=== PATIENT | male | born 1965 | race Caucasian/White ===

== ENCOUNTER 2017-05-17 06:10 | Inpatient (IN) ==
--- NOTE | 2017-05-16 21:05 | Discharge Summary ---
<Tanna Garza - Last Filed: 05/16/17 21:02> Date of Encounter: 05/16/17 - Discharge Diagnosis (1) Rotator cuff tear arthropathy of right shoulder Priority: Primary Status: Acute (2) Status post total shoulder replacement Priority: Primary Status: Acute Comments: Plan to discharge home with Home Health. Qualifiers: Laterality: right Qualified Code(s): Z96.611 - Presence of right artificial shoulder joint (3) Obesity Priority: Secondary Status: Chronic Qualifiers: Obesity type: unspecified obesity type Obesity severity: morbid Qualified Code(s): E66.01 - Morbid (severe) obesity due to excess calories (4) Chronic pain Priority: Secondary Status: Chronic Comments: Holding chronic pain medication. OARRS reviewed. Hold Bevier 5/325. Qualifiers: Chronic pain type: other chronic pain Qualified Code(s): G89.29 - Other chronic pain (5) HTN (hypertension) Priority: Secondary Status: Chronic Qualifiers: Hypertension type: essential hypertension Qualified Code(s): I10 - Essential (primary) hypertension (6) COPD (chronic obstructive pulmonary disease) Priority: Secondary Status: Acute Qualifiers: COPD type: unspecified COPD Qualified Code(s): J44.9 - Chronic obstructive pulmonary disease, unspecified - Discharge Medications Home Medications: OxyCODONE Immed Rel [Roxicodone 5 MG] 5 - 10 mg PO Q6HR PRN #40 tablet 05/16/17 [Rx] HYDROcodone/Acet 10/325 mg [Bevier 10-325 mg] 1 tab PO Q6H PRN 05/17/17 [History] Oxygen 5 l NS HS 05/17/17 [History] Allergies/Adverse Reactions: Allergies aspirin Adverse Reaction (Unverified 05/17/17 07:59) SWELLING ibuprofen [From Advil] Adverse Reaction (Unverified 05/17/17 07:59) SWELLING swelling naproxen Adverse Reaction (Unverified 05/17/17 07:59) SWELLING rofecoxib [From Vioxx] Adverse Reaction (Unverified 05/17/17 07:59) SWELLING Primary care physician: Shoaib Vital MD - Patient Status Disposition: Home Health Service Condition: Good - Discharge Instructions Follow Up With: Shoaib Vital MD [Primary Care Provider] - Additional Instructions: Discharge Instructions: Total Shoulder Please call [facility] ([phone]), your Primary Care Physician, or report to the Emergency Room if you have any of the following symptoms: Nausea, vomiting, fever greater that 101.5, swelling, chest pain, shortness of breath, increased pain/redness/drainage/odor for your incision site, numbness/ tingling, or any other concerning symptoms. ACTIVITY: Always keep your arm in the sling. Do not raise your arm away from your body. Do not use your arm to help with getting in or out of bed. No weight bearing permitted. Only perform those exercises given to you by your therapist. MEDICATIONS: Upon discharge resume your home medications. Take all the medications as prescribed. Take a stool softener if taking narcotic pain medications. Stool softeners are only effective if you drink enough fluids. Drink 6-8 glass of water or fluids a day, unless this is not allowed for another health problem. Despite using stool softeners, if you haven't had a bowel movement in 3 days, please switch to a gentle laxative. Gentle laxatives are sold over the counter. You should have a bowel movement within 24 hours, if not call the office. You will be discharged from the hospital with a prescription for pain medication. You are encouraged to decrease the use of narcotic pain medication as tolerated. Should you require a refill, please call the office. [facility] prescribes narcotic pain medication for only 4-6 weeks after surgery. If you require pain medication beyond this time period, you may be referred to your Primary Care Physician or to the Pain Clinic for further evaluation. Plan ahead for refills on pain medication as many narcotics either need to be picked up at the office or mailed. It is best to call 48-72 hours in advance of needing a prescription refill so you don't run out of medication. To help control the post-operative pain, you may take NSAIDs (Aleve,Advil, Motrin, Ibuprofen, Naprosyn) or Tylenol as prescribed on the bottle in addition to the pain medication. WOUND CARE: Leave the dressing on for 7-10 days. You may change the dressing if it becomes saturated greater than 50%. Do not get the dressing wet at anytime. Wash your hands with antibacterial soap, rinse and dry prior to any wound care. If you have angela the visiting nurse or rehab facility can remove the stapes 10-14 days after surgery and place steri-strips across the wound. Leave the steri-strips in place until they fall off on their own. You may let water from the shower run on top of the steri-strips. If you do not have a visiting nurse or rehab facility, you will need to return to the office at 10-14 days for the angela to be removed. If you have itching or redness around the dressing call the office. FOLLOW-UP: Please follow up with your surgeon in the orthopedic clinic, as scheduled - Hospital Course Hospital course: Mr. Page is a 51 year old male - Time Spent with Patient Total time spent providing and/or coordinating discharge services: <Ajit Núñez - Last Filed: 05/17/17 16:05> Date of Encounter: 05/17/17 Time of Encounter: 16:05 - Discharge Diagnosis (1) Rotator cuff tear arthropathy of right shoulder Priority: Primary Status: Acute (2) Status post total shoulder replacement Priority: Primary Status: Acute Qualifiers: Laterality: right Qualified Code(s): Z96.611 - Presence of right artificial shoulder joint (3) Obesity Priority: Secondary Status: Chronic Qualifiers: Obesity type: unspecified obesity type Obesity severity: morbid Qualified Code(s): E66.01 - Morbid (severe) obesity due to excess calories (4) Chronic pain Priority: Secondary Status: Chronic Qualifiers: Chronic pain type: other chronic pain Qualified Code(s): G89.29 - Other chronic pain (5) HTN (hypertension) Priority: Secondary Status: Chronic Qualifiers: Hypertension type: essential hypertension Qualified Code(s): I10 - Essential (primary) hypertension (6) COPD (chronic obstructive pulmonary disease) Priority: Secondary Status: Acute Qualifiers: COPD type: unspecified COPD Qualified Code(s): J44.9 - Chronic obstructive pulmonary disease, unspecified Primary care physician: Shoaib Vital MD - Patient Status Functional capacity at discharge: independent ambulation Overall status at discharge: patient is progressing back to baseline - Hospital Course Hospital course: Mr. Page is a 51 year old male Status post total shoulder replacement discharged same day after receiving IV antibiotics and Lovenox prior to discharge. Uneventful postoperative course discharge stable condition - Time Spent with Patient Total time spent providing and/or coordinating discharge services:
--- NOTE | 2017-05-16 21:06 | Physician Discharge Referral ---
- Diagnosis (1) Rotator cuff tear arthropathy of right shoulder Priority: Primary Status: Acute (2) Status post total shoulder replacement Priority: Primary Status: Acute (3) Obesity Priority: Secondary Status: Chronic (4) Chronic pain Priority: Secondary Status: Chronic (5) HTN (hypertension) Priority: Secondary Status: Chronic (6) COPD (chronic obstructive pulmonary disease) Priority: Secondary Status: Acute - Respiratory Orders None Smoking Cessation: Smoking cessation has been advised. For more information, call the [employer] Tobacco Quit Line at 7-170-XLHX-NOW. - Dressing/Wound Care Site: Opsite Right Shoulder Type of Dressing/Treatments w/Frequency: Opsite placed. Keep dressing intact until first follow up appointment. If > 50% saturated,notify offfice, remove dressing and place appropriate dressing back in place. Dressing is water resistant, not water-proof. OK to shower, but do not get dressing wet. - Diet/Nutrition Diet/Nutrition Orders: Regular - Activity Activity Orders: Ambulate - Services Needed Following services are medically necessary services: Nursing, Physical Therapy, Occupational Therapy Other Treatments: PT/OT. NWB to affected upper extremity. Follow Shoulder Precautions x 6 weeks. Stay in brace during activity and at night. Remove brace during exercises. ICE and elevate extremity frequently throughout the day. - Transfer Medications Home Medications: OxyCODONE Immed Rel [Roxicodone 5 MG] 5 - 10 mg PO Q6HR PRN #40 tablet 05/16/17 [Rx] HYDROcodone/Acet 10/325 mg [Livingston 10-325 mg] 1 tab PO Q6H PRN 05/17/17 [History] Oxygen 5 l NS HS 05/17/17 [History] Allergies/Adverse Reactions: Allergies aspirin Adverse Reaction (Unverified 05/17/17 07:59) SWELLING ibuprofen [From Advil] Adverse Reaction (Unverified 05/17/17 07:59) SWELLING swelling naproxen Adverse Reaction (Unverified 05/17/17 07:59) SWELLING rofecoxib [From Vioxx] Adverse Reaction (Unverified 05/17/17 07:59) SWELLING Certification: Further, I certify that my clinical findings support that this patient is homebound (i.e. absences from home require considerable and taxing effort and are for medical reasons or [employer] services or infrequently or short duration when for other reasons) because: Homebound Reason: Post-surgery restriction and or conditions limit ability to leave home Attestation: My signature below is to certify that this patient is under my care and that I, or nurse practitioner, or a physician's assistant nurse manager working with me, has a face-to -face encounter with this patient.
[2017-05-17] MEDS ORDERED: CeFAZolin Pre 2,000 MG/100 ML 2,000 MG/100 ML BAG IVPB ONE (06:27)
[2017-05-17] MEDS ORDERED: Ringers Solution, Lactated 1,000 ML IVC SCH ×2 (06:30→10:58)
--- NOTE | 2017-05-17 06:33 | History & Physical Report ---
Date of Encounter: 05/17/17 Time of Encounter: 06:32 24 Hour HP Update - Instructions Instructions: If the History and Physical is less than 30 days old and was completed prior to A.M. admission and or procedure and has NOT been updated on calendar day of procedure please complete this update prior to performing procedure. - Update Patient reports changes in Medical Condition: No Changes in examination, assessment, or condition: No Changes in Medication: No Preop tests/diagnostics Reviewed: Yes Surgery Remains Indicated: Yes Consent for Planned Operative Procedure(s) Verified: Yes - Pre-Operative Checklist Preoperative Checklist Indicated: No Prophylactic Antibiotic Ordered: No Home Medications Include Beta Darlene: No Is VTE Prophylaxis Indicated?: Yes
[2017-05-17] MEDS ORDERED: Famotidine 20 MG/2 ML VIAL IVP ONE (06:53)
[2017-05-17] MEDS ORDERED: Gabapentin 300 MG CAPSULE PO ONE (06:53)
--- NOTE | 2017-05-17 06:56 | Anesthesia Evaluation PreOp ---
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: Denies Any Significant HX Other Medical History: Other (Morbid Obesity) Alcohol Use: none Medications and Allergies OxyCODONE Immed Rel [Roxicodone 5 MG] 5 - 10 mg PO Q6HR PRN #40 tablet 05/16/17 [Rx] Allergies aspirin Allergy (Unverified 05/07/17 13:54) See Comments ibuprofen [From Advil] Allergy (Unverified 05/07/17 13:54) See Comments swelling naproxen Allergy (Unverified 05/07/17 13:54) See Comments rofecoxib [From Vioxx] Allergy (Unverified 05/07/17 13:54) See Comments - Meds/Allergy Pre-op Review Medications Reviewed: Yes Allergies Reviewed: Yes Beta Blockers on Current Med List: No Anesthesia Results - Labs Laboratory Tests 05/07/17 05/07/17 05/07/17 14:00 14:00 14:00 Hgb 14.8 Hct 44.8 Plt Count 248 PT 10.6 INR 1.0 APTT 31.2 Sodium 139 Potassium 3.9 BUN 11 Creatinine 0.80 - Imaging EKG: pending Anesthesia Exam O2 Sat Height 1.83 m Height 1.83 m Weight 172.365 kg Weight 172.365 kg O2 Sat by Pulse Oximetry 93 Vital Signs Temp Pulse Resp BP Pulse Ox 97.7 F 77 18 131/82 93 05/17/17 06:45 05/17/17 06:45 05/17/17 06:45 05/17/17 06:45 05/17/17 06:45 Height: 6'0 Weight: 380 lbs NPO (# of Hours): MN Pain Scale: 0 - HEENT Pupil (Motor): Pupils equal, EOMI Mallampati: III Teeth: Edentulous Oral Opening: Less than or equal to 3 - BUTTON SPINDLER LOC: Oriented BUTTON SPINDLER Motor: Normal RUE, Normal LUE, Normal RLE, Normal LLE, Normal Face BUTTON SPINDLER Sensory: Normal: RUE, LUE, RLE, LLE, Face - Cardiac Rhythm: Regular Murmur: None JVD: No Carotid Bruit: No - Pulmonary Breath Sounds: bilateral Clear Respiratory Effort: Symmetrical Anesthesia Assess/Plan ASA Score: 3 (MO ROHINI COPD) Modified Ellis Scale for Level of Consciousness: Cooperative, oriented, and tranquil Anesthetic Plan: General, Regional Monitoring Plan: Standard Monitors Recovery Plan: PACU (Discussed GA and RA, agrees to proceed)
[2017-05-17] MEDS ORDERED: CeFAZolin Pre 3,000 MG/100 ML 3,000 MG/100 ML BAG IVPB ONE (06:58)
[2017-05-17] MEDS: Albuterol 2.5 MG/3 ML NEBULIZER IH ONE ×2 (07:02→10:07)
[2017-05-17] MEDS ORDERED: *HR* FentaNYL (PF) 100 MCG/2 ML VIAL ONE ×2 (07:09→08:18)
[2017-05-17] MEDS ORDERED: *HR* Propofol 200 MG/20 ML VIAL IVP ONE ×2 (07:10→07:47)
[2017-05-17] MEDS ORDERED: *HR* Midazolam HCl 2 MG/2 ML VIAL ONE (07:10)
[2017-05-17] MEDS ORDERED: Lidocaine -MPF 2% 2 ML VIAL ONE ×2 (07:11→07:16)
[2017-05-17] MEDS ORDERED: *HR* Succinylcholine 200 MG/10 ML VIAL IVP ONE (07:11)
[2017-05-17] MEDS ORDERED: Lidocaine -MPF 4% 5 ML AMPUL ONE (07:12)
[2017-05-17] MEDS ORDERED: Lidocaine -MPF 1% 2 ML VIAL ONE (07:15)
[2017-05-17] MEDS ORDERED: Tetracaine/PF 20 MG/2 ML AMPUL ONE (07:20)
[2017-05-17] MEDS ORDERED: ROPIVACAINE HCL/PF 0.5% 30 ML VIAL ONE (07:20)
[2017-05-17] MEDS ORDERED: Bupivacaine/Clonidine Syringe 1 EACH SYRINGE ONE (07:21)
[2017-05-17] MEDS ORDERED: *HR* Rocuronium Bromide 50 MG/5 ML VIAL ONE (07:48)
[2017-05-17] MEDS ORDERED: Ondansetron 4 MG/2 ML VIAL ONE (08:09)
[2017-05-17] MEDS ORDERED: Dexamethasone 4 MG/ML VIAL ONE (08:09)
--- NOTE | 2017-05-17 08:29 | Anesthesia Procedures ---
Date of Encounter: 05/17/17 Time of Encounter: 07:30 Procedures: Anesthesia - Nerve Block Procedure Date: 05/17/17 Time: 07:30 Allergies/Adv Reactions: multiple see chart Pre-op Diagnosis: right shoulder arthropathy Surgical Procedure: right shoulder total reverse Checklist: Correct Patient Identifier, Correct procedure, History checked Correct side: Right Blood Thinner: No Monitor Applied: EKG, BP, Pulse Oximetry Supplemental Oxygen via Nasal Cannula (L/min): 2 Sedation: Versed (mg): 2 Sedation: Fentanyl (mcg): 100 Indication: Post Op Analgesia Pre-op Neuro Deficits: No Block Type: Supraclavicular, Other (superficial cervical, intercostobrachial) Catheter placed: No Sterile Technique: Yes Ultrasound used: Yes Anatomy identified: Yes Visual spread of Local: Yes Neuro Stimulation: No Blood on Needle Aspiration: No Smooth Injection of Local: Yes Pain with Injection of Local: No Prep: Chlorhexadine Needle: 22 x 50 mm Stimuplex Local: 0.25% Bupivicaine w/Clonidine 20 mcg/cc (20 ml), Ropivacaine (30 ml ropivicaine) Volume (cc): 50 Number of Attempts: 1 Complications: None/effective block Vitals: 3 Vital Signs Time 0730 0740 BP 130/80 132/82 Pulse 75 75 Resp 16 16 O2 Sat 97 97
[2017-05-17] MEDS ORDERED: *HR* Phenylephrine 10 MG/ML VIAL ONE (08:33)
--- NOTE | 2017-05-17 09:02 | Orthopedic Operative Note ---
Date of procedure: 05/17/17 Pre-op diagnosis: Right shoulder cuff tear arthropathy Post-op diagnosis: same Procedure: Procedure: Right Total Shoulder Replacment Reverse, Estimated blood loss: 200 cc Hardware: Metal and polyethylene replacement: Arthrex large glenoid baseplate, 2 4.5 screws. 1 6.5 screw, 42+4 glenosphere, 12 humeral stem, poly insert 3 and 12 metal Exam Under anesthesia: Restricted motion in all planes Procedural Notes: Grade #4 arthritic changes humeral head glenoid socket ultimately loose bodies irreparable tear super space tendon. Operative procedure: The patient was brought to the operating room and placed on the operating room table. After general anesthesia was administered the operative shoulder was examined. Findings were noted. The patient was placed in the modified beachchair position. All pressure points were padded appropriately. And the head was stabilized in the neutral position. The operative extremity was prepped and draped in the sterile surgical fashion. The patient received IV antibiotics prior to skin incision. A standard deltopectoral approach was made to the operative shoulder. Incision was made to the skin and subcutaneous tissue,hemo stasis was obtained with Bovie cautery. Using careful blunt dissection the cephalic vein was identified and mobilized medially. The deltopectoral interval was developed and the clavipectoral fascia was incised. The subscap was released off the lesser tuberosity and tagged with #2 FiberWire suture subscap was irreparable. The humerus was dislocated patient noted to have irreparable tear supraspinatus tendon, and the humeral cut was made along the anatomic neck. Patient had severe arthritic changes humeral head with osteophytes and multiple loose bodies. Anterior and posterior Bankart retractors were placed to expose the glenoid. Glenoid had extensive grade 4 arthritic changes. The glenoid guide was seated and the centering hole was made. It was reamed with the appropriate reamer. Large baseplate was seated and secured with (2) 4.5 screws and one 6.5 screw. The baseplate was irrigated and dried and the 42+4 Glenosphere was seated and secured with the Paul taper. The Paul taper was tested and found to be secure the humerus was redislocated and prepared with the diaphyseal reamers, followed by a broaching process up to the appropriate size 12 in the patient's anatomic version. The metaphyseal reamer was then utilized. Trial reduction found the shoulder to be relocatable. Trial components were removed. The appropriate 12 stem was impacted in place in the patient's anatomic version. Trial reduction found the shoulder to be relocatable and stable with the appropriate 3 Rufina 12 metal. Trial component was removed and the real implants was seated and secured the shoulder was reduced. The shoulder had excellent motion and excellent stability and no evidence of dislocation. The deep tissue was irrigated with pulse irrigation. The PA closed the shoulder. The deltopectoral interval was closed with a running #1 PDS suture, subcutaneous tissue was irrigated and closed with 0 PDS suture, the skin was closed with Dermabond. The patient was placed in a sterile dressing, abduction brace and extubated. The patient was then transferred to the recovery room in stable condition. Anesthesia: FERNANDEZ Surgeon: Ajit Núñez [employer] Estimator: Tamara Gusman Condition: stable Disposition: PACU
[2017-05-17] MEDS: *HR* HYDROmorphone (PF) 1 MG/ML SYRINGE IVP PRN ×2 (09:43→10:13)
[2017-05-17] MEDS ORDERED: Albuterol 2.5 MG/3 ML NEBULIZER ONE (09:56)
[2017-05-17 10:08] LABS: Hemoglobin 15.1 g/dL (12.9-16.9)
--- NOTE | 2017-05-17 10:48 | Anesthesia Evaluation Post Op ---
Date of Encounter: 05/17/17 Time of Encounter: 10:45 - Vital Signs Vital Signs: Vital Signs/O2 Sat/Glucose, Most Current Temp Pulse Resp BP Pulse Ox 05/17/17 10:28 98.6 F 79 20 134/72 93 05/17/17 10:08 76 20 112/56 95 05/17/17 09:58 98.7 F 76 20 137/58 96 05/17/17 09:48 80 20 134/70 96 05/17/17 09:38 79 20 123/79 96 05/17/17 09:28 98.6 F 86 20 135/74 97 05/17/17 07:40 74 16 142/82 98 05/17/17 07:35 97.7 F 77 18 131/82 93 05/17/17 07:28 76 16 135/82 98 - Lungs Lungs: Clear Ascult./Percussion - Airway Airway: Non-obstructed - Cardiovascular Regular Rate - Mental Status Mental Status: Alert & Oriented, Answers Appropriately - Pain Pain Scale: 0 - Nausea Vomiting Nausea Vomiting: Not Present - Hydration Hydration: Ice chips - Discharge PostOp Status: Transfer Patient to floor
[2017-05-17] MEDS ORDERED: Ondansetron 4 MG/2 ML VIAL IVP PRN (10:58)
[2017-05-17] MEDS ORDERED: *HR* OxyCODONE Immed Rel 5 MG TABLET PO PRN ×2 (10:58)
[2017-05-17] MEDS ORDERED: Naloxone 0.4 MG/ML INJ IVP PRN (10:58)
[2017-05-17] MEDS ORDERED: ceFAZolin 3,000 MG in D5% in Water 100 ML IVPB SCH (10:58)
[2017-05-17] MEDS ORDERED: *HR* HYDROmorphone (PF) 1 MG/ML SYRINGE IVP PRN (10:58)
--- NOTE | 2017-05-17 13:14 | Electrocardiograph Report ---
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
[2017-05-17 15:03] VITALS: BP 133/70
[2017-05-17] MEDS ORDERED: *HR* Enoxaparin 30 MG/0.3 ML SYRINGE SQ SCH ×3 (15:09→18:00)
[2017-05-17] MEDS ORDERED: Temazepam 15 MG CAPSULE PO PRN (21:00)
[2017-05-17] MEDS ORDERED: MOM Conc 10 ML UD.LIQ PO PRN (21:00)
[2017-05-17] MEDS ORDERED: NON-FORMULARY MEDICATION 1 EACH EACH (Oxygen [Oxygen] 5 L) NS SCH (21:00)
[2017-05-17] MEDS ORDERED: Sennosides 8.6 MG TABLET PO PRN (21:00)
== END 2017-05-17 15:28 | disposition home health service (06) | DRG 483 ==
LOC: SAMDAY 06:10 → 3NENU 11:00
PROVIDERS: ADMIT Orthopaedic Surgery; ATTEND Orthopaedic Surgery